=== PATIENT | female | born 1960 | race Caucasian/White ===

== ENCOUNTER 2017-03-23 12:34 | Emergency (ER) | payer MEDICARE, MEDICAID ==
--- NOTE | 2017-04-06 15:51 | ER ---
ADMIT: 03/23/2017 RM/LOC: ER [facility] MR#: [id number] [id number] [place], [place] [id number] NARCISO LAZARANAM [address] [place] [address] Emergency Room Report SEX: F AGE: 56 : 1960 DATE: 03/23/2017 CHIEF COMPLAINT: Cough. HISTORY OF PRESENT ILLNESS: This 56-year-old, female, who presents to the ER with a weeks duration of worsening shortness of breath and cough. States she had some nonproductive cough and nasal congestion, about 7 days ago. Over the past 48 hours, she has had increase in productive sputum with some blood streaks in her sputum. Admits to chills, muscle aches, and chest pain with cough, shortness of breath and pain with breathing. She also states about 8 days ago, she has noticed some itching and redness in her left eye. States her eye actually bled. Since then, she has had pain. She denies any known precipitating event. No chemical exposures. She does not wear contact lenses. Otherwise, healthy. Denies any history of any cardiac, diabetes, hypertension, or lung problems. COURSE IN THE EMERGENCY ROOM: The patient was seen and examined. GENERAL: She is afebrile and nontoxic. No acute distress. HEENT: Head is normocephalic and atraumatic. She has no pain with percussion over the sinuses. She does have significant erythema and conjunctival injection of the left eye with some corneal defect evident on ophthalmoscope exam. Extraocular muscles intact. Pupils are equal and reactive to light. Tympanic membranes are pearly white bilaterally. Nose has some scant rhinorrhea. Pharynx is nonerythematous. No exudates. NECK: Soft, supple. No thyroid. CHEST: Clear to auscultation. ABDOMEN: Soft and nontender. She does have a bruit, left CVA. HEART: Regular. SKIN: Warm and dry. EXTREMITIES: Nontender. No pedal edema. LABORATORY STUDIES: White count 5.3, hemoglobin 12.9, hematocrit 37.4, and platelet 89. Sodium 139, potassium 3.7, CO2 of 25, BUN 11, glucose 141, creatinine 0.8. She did receive a DuoNeb treatment, she states it mildly improved her breathing. Chest x-ray shows no acute infiltrates. I did fluorescein stain in her left eye, there was no uptake in the defect found on ADMIT: 03/23/2017 RM/LOC: ER [facility] MR#: [id number] [address] [place] [id number] ANAM BRYAN [address] [place] [address] Emergency Room Report SEX: F AGE: 56 : 1960 initial exam. No pain with extraocular movement. IMPRESSION: 1. Conjunctivitis, left eye. 2. Bronchitis. DISPOSITION: Patient will be discharged. Instructions to start erythromycin ophthalmic ointment 1 cm ribbon to the left lower eyelid 4 times daily for 5 days. I did encourage her to follow up with Dr. Barber tomorrow, call to make an appointment. She also given a script for Tessalon Perles 100 mg p.o. t.i.d. p.r.n. cough, increase fluids, follow up with Dr. Giang's clinic as needed if she is not improving. Questions sought and answered to best of my ability and the patient's satisfaction. Discharged in stable condition. KEERTHI Beauchamp / Nestor Muhammad MD / nadira JOB #: [id number] CC: Amadou Vaughn MD, Attending Physician
== END 2017-03-23 14:25 | disposition home or self-care (01) ==
LOC: ER 12:34
DX: J20.9 Acute bronchitis, unspecified (principal); H10.9 Unspecified conjunctivitis; Z88.0 Allergy status to penicillin; Z79.899 Other long term (current) drug therapy